=== PATIENT | male | born 1955 | race Caucasian/White ===

== ENCOUNTER → 2021-11-25 | Outpatient (CLI) | payer OTHER ==
[2021-11-25 12:27] LABS: BE(vivo) -1.6 mmol/L (-2 to +3); HCO3 23.1 mmol/L (22.0-26.0); PCO2 39.2 mmHg (35.0-45.0); PO2 85.7 mmHg (80.0-100.0); pH 7.389 (7.360-7.450); sO2 96.4 % (92.0-98.0)
== END ==
LOC: PUL 11:41
PROVIDERS: ATTEND Emergency Medicine
DX: R06.02 Shortness of breath (principal)